=== PATIENT | male | born 1960 | race Caucasian/White ===

== ENCOUNTER 2023-07-13 09:27 | Day surgery (SDC) | payer MEDICARE ==
[2023-07-13] MEDS ORDERED: LACTATED RINGERS 1,000 ML IV ONE ×2 (10:40)
[2023-07-13 11:05] VITALS: RESP 16; TEMP 98.2
[2023-07-13] MEDS ORDERED: PROPOFOL 10 MG/ML 20 ML VIAL IV ONE (11:36)
[2023-07-13] MEDS ORDERED: LIDOCAINE 1% INJ 10MG/ML (20 ML MDV) ONE (11:36)
--- NOTE | 2023-07-13 11:48 | P.PCN ---
Date of Procedure: 07/13/23 Procedure(s) Performed: BRIEF HISTORY: Patient is a 62-year-old, pleasant, white female scheduled for an upper endoscopy as a part of evaluation of epigastric and periumbilical abdominal pain for the last 2 months duration. Symptoms are worse postprandially and lost almost 40 pounds in the last 6 weeks. Has been on omeprazole 20 mg daily with no help. His and scheduled for an upper endoscopy to evaluate further.. PROCEDURE PERFORMED: Esophagogastroduodenoscopy with biopsy PREOPERATIVE DIAGNOSIS: Epigastric pain and progressive weight loss of 40 pounds in the last 2 months duration. IV sedation per anesthesia. PROCEDURE: After informed consent was obtained, the patient was brought into the endoscopy unit. IV sedation was administered by Anesthesia under continuous monitoring. Initially the Olympus GIF-140 video endoscope was inserted into the mouth. Esophagus intubated without any difficulty. It was gradually advanced into the stomach and duodenum and carefully examined. The bulb and the second part of the duodenum appeared normal. Biopsies were done from the duodenum to rule out celiac disease. The scope at this time was withdrawn to the stomach, adequately insufflated with air, and upon careful examination, mucosa of the antrum, had patchy areas of erythema consistent with gastritis and biopsies were done from this area. Mucosa of the body, cardia and the fundus appeared normal. The scope was then withdrawn into the esophagus. The GE junction was located at 36 cm from the incisors. Small hiatal hernia noted. There was a short segment of Henderson's esophagus extensively millimeters proximal to the GE junction which was biopsied. The rest of the esophagus appeared normal. There were no erosions or ulcerations seen and the patient tolerated the procedure well. IMPRESSION: 1. Mild antral gastritis. 2. Small hiatal hernia and short segment Henderson's esophagus status post biopsy. RECOMMENDATIONS: The findings of this examination were discussed with the patient as well as her family. He was advised to follow with the biopsy results. In the meantime he will be scheduled for CT of the abdomen and pelvis for evaluation of epigastric pain and progressive weight loss. He will follow up in office in 3-4 weeks.
[2023-07-13 12:14] VITALS: BP 115/52; PULSE 52
== END 2023-07-13 12:25 | disposition home or self-care (01) ==
LOC: ORWHC2ENDO 09:27
PROVIDERS: ATTEND Internal Medicine Gastroenterology
DX: K29.70 Gastritis, unspecified, without bleeding (principal); K21.00 Gastro-esophageal reflux disease with esophagitis, without bleeding; K22.70 Barrett's esophagus without dysplasia; K44.9 Diaphragmatic hernia without obstruction or gangrene; I25.10 Atherosclerotic heart disease of native coronary artery without angina pectoris; I10 Essential (primary) hypertension; E78.5 Hyperlipidemia, unspecified; I25.2 Old myocardial infarction; J45.909 Unspecified asthma, uncomplicated; J44.9 Chronic obstructive pulmonary disease, unspecified; E07.9 Disorder of thyroid, unspecified; K21.9 Gastro-esophageal reflux disease without esophagitis; F17.200 Nicotine dependence, unspecified, uncomplicated; Z79.52 Long term (current) use of systemic steroids; Z98.890 Other specified postprocedural states; Z79.83 Long term (current) use of bisphosphonates; Z79.82 Long term (current) use of aspirin; Z79.51 Long term (current) use of inhaled steroids; Z79.899 Other long term (current) drug therapy
CPT/HCPCS: 88305; 88342; 43239; J2001; J2704

== ENCOUNTER → 2023-07-16 | Outpatient (CLI) | payer MEDICARE ==
--- NOTE | 2023-07-16 16:29 | CT ---
EXAMINATION TYPE: CT abdomen pelvis w con CT DLP: 788 mGycm, Automated exposure control for dose reduction was used. DATE OF EXAM: 07/16/2023 3:22 PM COMPARISON: None CLINICAL INDICATION:Male, 62 years old with history of R63.4 ABNORMAL WEIGHT LOSS; Abnormal weight lo ss unspecified abdominal pain, constipation. TECHNIQUE: Standard CT of the abdomen and pelvis following the administration of 100 cc of Isovue 3 00 IV contrast material and oral contrast. Coronal and sagittal reformats were performed. FINDINGS: LOWER CHEST: Unremarkable ABDOMEN LIVER: A few subcentimeter hypodense foci which are too small characterize but likely represent cysts . GALLBLADDER AND BILE DUCTS: Unremarkable. PANCREAS: Unremarkable. SPLEEN: Unremarkable. ADRENAL GLANDS: Unremarkable. KIDNEYS AND URETERS: Horseshoe kidney identified. Nonobstructive left renal 4 mm calculus. No hydron ephrosis. Left renal 1.5 cm cyst. Contrast is demonstrated within both collecting systems. PELVIS BLADDER: Minimal circumferential wall thickening with a tiny anterior urinary bladder diverticulum. REPRODUCTIVE: Prostate is enlarged in size measuring 5.1 cm in transverse dimension. This indents upo n the urinary bladder base. Bilateral hydroceles. ABDOMEN & PELVIS STOMACH AND BOWEL: Small hiatal hernia, duodenum is unremarkable. No focal wall thickening or surroun ding inflammatory changes. Enteric contrast reaches the ascending colon. No evidence of bowel obstruc tion. No significant stool burden. PERITONEUM: No evidence of pneumoperitoneum or free fluid. VASCULATURE: No evidence of aortic aneurysm. MUSCULOSKELETAL: No acute osseous abnormalities LYMPH NODES: No gross evidence for lymphadenopathy. SOFT TISSUE/ABDOMINAL WALL: Unremarkable IMPRESSION: 1. Minimal circumferential wall thickening of the urinary bladder which may be related to cystitis ve rsus chronic outlet obstruction from the enlarged prostate gland. Tiny anterior urinary bladder wall diverticulum identified. Correlate with urinalysis. 2. Horseshoe kidney with nonobstructive left calculus.
== END | disposition home or self-care (01) ==
LOC: RADCTMAIN 14:09
PROVIDERS: ATTEND Internal Medicine Gastroenterology
DX: Q63.1 Lobulated, fused and horseshoe kidney (principal); K59.00 Constipation, unspecified; N32.89 Other specified disorders of bladder; R63.4 Abnormal weight loss
CPT/HCPCS: 74177; Q9967